=== PATIENT | female | born 1970 | race Caucasian/White ===

== ENCOUNTER 2017-04-28 11:51 | Emergency (ER) | payer MEDICAID ==
[~2017-04-28] VITALS: Ht 152.4 cm; Wt 87.0 kg
[~2017-04-28 11:51] MED LIST: ACET-1600 PO
[2017-04-28] MEDS ORDERED: SODIUM CHLORIDE FLUSH 10ML SYR IVF ONE (13:30)
[2017-04-28] MEDS ORDERED: SODIUM CHLORIDE 0.9% 1,000ML IVBOLUS ONE (13:30)
[2017-04-28 13:47] LABS: HEMATOCRIT 28.5 % (34.6-47.8); HEMOGLOBIN 8.8 g/dL (11.7-16.4); WHITE BLOOD COUNT 8.1 x10^3/uL (3.4-10)
[2017-04-28 13:48] LABS: BLOOD UREA NITROGEN 10 mg/dL (7-18)
[2017-04-28 13:49] LABS: ANISOCYTOSIS 1+; LARGE PLATELETS 1+; POLYCHROMASIA 1+
[2017-04-28 13:50] LABS: HYPOCHROMIA 1+
[2017-04-28 13:51] LABS: MICROCYTOSIS 2+
[2017-04-28 13:54] LABS: IS PT STATUS REG ER OR PRE ER? YES
[2017-04-28 17:41] VITALS: BP 148/76
== END 2017-04-28 17:44 | disposition home or self-care (01) ==
LOC: ED 13:45
DX: D62 Acute posthemorrhagic anemia (principal); R55 Syncope and collapse; Z87.891 Personal history of nicotine dependence; Z90.49 Acquired absence of other specified parts of digestive tract
CPT/HCPCS: 36415; 70450; 76830; 80048; 82040; 84484; 85025; 93005; 96360; 96361; 99285; J7030

== ENCOUNTER 2020-11-08 00:50 | Emergency (ER) | payer MEDICAID ==
[~2020-11-08] VITALS: Ht 152.4 cm; Wt 90.0 kg
[2020-11-08] MEDS ORDERED: NITROGLYCERIN OINT 2%, 1GM TP ONE (01:00)
[2020-11-08] MEDS ORDERED: SODIUM CHLORIDE FLUSH 10ML SYR IVF ONE ×2 (01:00→01:30)
--- NOTE | 2020-11-08 01:23 | NUR ---
TASK RN: TO CT SCAN
[2020-11-08 01:31] LABS: BASOPHILS % (AUTO) 1 % (0-1); EOSINOPHILS % (AUTO) 4 % (1-7); LYMPHOCYTES % (AUTO) 35 % (22-44); MEAN CORPUSCULAR HEMOGLOBIN 26.6 pg (27.0-34.8); MEAN CORPUSCULAR HGB CONC 33.6 g/dL (32.4-35.8); MONOCYTES % (AUTO) 6 % (2-9); NEUTROPHILS % (AUTO) 54 % (42-75); PLATELET COUNT 312 x10^3/uL (130-400); RED CELL DISTRIBUTION WIDTH 16.2 % (9.6-15.2)
[2020-11-08 01:33] LABS: MD NO
--- NOTE | 2020-11-08 01:42 | NUR ---
Right eye;20/30 Left Eye; 20/50 Both eyes;20/25
[2020-11-08 01:43] LABS: ALBUMIN 3.3 g/dL (3.4-5.0); ANION GAP 8 mmol/L (5-15); CALCIUM 8.6 mg/dL (8.5-10.1); CHLORIDE 110 mmol/L (98-107)
[2020-11-08 01:49] LABS: ALANINE AMINOTRANSFERASE 129 U/L (12-78); ALKALINE PHOSPHATASE 124 U/L (45-117); BILIRUBIN,TOTAL 0.3 mg/dL (0.2-1.0); CREATININE 0.77 mg/dL (0.55-1.02); TOTAL PROTEIN 8.5 g/dL (6.4-8.2); TROPONIN I < 0.015 ng/mL (0.000-0.045)
[2020-11-08 02:52] LABS: HCT (SEDRATE) 37.3 % (34.6-47.8)
--- NOTE | 2020-11-08 03:04 | NUR ---
PT SUPINE ON GURNEY, RESTING COMFORTABLY WITH EYES CLOSED. PT DENIES ANY NEEDS AT THIS TIME. CALL LIGHT AND BELONGINGS WITHIN REACH
[2020-11-08] MEDS ORDERED: methylPREDNISolone SOD SUCC 125 MG/2 ML IVPush ONE (03:30)
--- NOTE | 2020-11-08 04:01 | NUR ---
PT TO MRI
[2020-11-08] MEDS ORDERED: GADOTERATE 10 MMOL/20ML SYR ONE (04:22)
--- NOTE | 2020-11-08 04:51 | NUR ---
PT RETURNED FROM MRI
[2020-11-08 05:52] VITALS: BP 125/70
--- NOTE | 2020-11-08 05:52 | NUR ---
Patient given discharge instructions and they have confirmed that they understand the instructions. Patient ambulatory with steady gait.
== END 2020-11-08 06:00 | disposition home or self-care (01) ==
LOC: ED 05:55
DX: R51.9 Headache, unspecified (principal); F10.220 Alcohol dependence with intoxication, uncomplicated; R94.5 Abnormal results of liver function studies; R94.31 Abnormal electrocardiogram [ECG] [EKG]; Y90.0 Blood alcohol level of less than 20 mg/100 ml
CPT/HCPCS: 36415; 70450; 70553; 71045; 80053; 80320; 84484; 85025; 85651; 86140; 93005; 96365; 99285; A9575; J2930; G0480